=== PATIENT | male | born 1960 | race Caucasian/White ===

== ENCOUNTER 2018-11-11 11:43 | Emergency (ER) | payer OTHER ==
[~2018-11-11] VITALS: Ht 182.9 cm; Wt 117.9 kg
--- OUTSIDE RECORDS SUMMARY | 2018-11-11 11:45 | XMS REPORT | Clinical Summary ---
Demographics Address [address] [place] [address] Home Phone Preferred Language French Marital Status Single Protestant Affiliation Unknown Race White Ethnic Group Non- Author Author [facility] Address Unknown Phone Unavailable Care Team Providers Care Media Monitor Name Role Phone Hiren Velasquez MD PCP Allergies No Known Allergies Medications End Date Status Medication Sig Dispensed Refills Start Date Active METFORMIN HCL (METFORMIN Take 1,000 mg 0 ORAL) by mouth 2 (two) times a day. Active amLODIPine (NORVASC) 10 Take 10 mg by 0 mg tablet mouth daily. Active TESTOSTERONE 20 MG/ML 0 COMPOUNDED Active DULAGLUTIDE (TRULICITY Inject under 0 SUBQ) the skin. Active aspirin (ECOTRIN) 81 MG Take 81 mg by 0 enteric coated tablet mouth daily. Active cyclobenzaprine Take as 0 (FLEXERIL) 5 mg tablet needed 8 Active testosterone cypionate Take weekly 0 (DEPOTESTOTERONE 8 CYPIONATE) 200 mg/mL injection Active JARDIANCE 25 mg tablet Take 1 tablet 0 daily 8 Active Problems Not on file Social History Date Tobacco Use Types Packs/Day Years Used Never Smoker Smokeless Tobacco: Never Used Comments: quit 5 years ago Alcohol Use Drinks/Week oz/Week Comments No quit 15 years ago Sex Assigned at Date Recorded Not on file Industry Job Start Date Occupation Not on file Not on file Not on file Travel End Travel History Travel Start No recent travel history available. Last Filed Vital Signs Not on file Plan of Treatment Health Maintenance Due Date Last Done Comments COLON CANCER SCREENING 2008 SHINGLES VACCINES (#1) 2008 INFLUENZA VACCINE 02/28/2019 Results Not on fileafter 11/10/2017 Insurance Payer Benefit Subscriber ID Type Phone Address Plan / Group [facility] xxxxxxxxx HMO/PPO THCARE CHOICE/CHO ICE + Guarantor Name Account Relation to Date of Phone Billing Address Type Patient Genna Olson Personal/F Self 1960 [address] [facility] [place] [address] Advance Directives Patient has advance care planning documents on file. For more information, theresa castillo contact: Elbert Nelson [address] [place] [address]
== END 2018-11-11 12:15 | disposition home or self-care (01) ==
LOC: ER 11:43
DX: L02.01 Cutaneous abscess of face (principal); L03.211 Cellulitis of face; I10 Essential (primary) hypertension; E11.9 Type 2 diabetes mellitus without complications
CPT/HCPCS: 87071; 87186; 87205; 99282